=== PATIENT | male | born 1960 | race African-American/Black ===

== ENCOUNTER 2020-01-01 18:28 | Observation (INO) | payer OTHER ==
[~2020-01-01] VITALS: Ht 177.8 cm; Wt 78.9 kg
[~2020-01-01 18:28] MED LIST: KEFLEX500 MG ORAL; NAPROSYN500 M1 ORAL
[2020-01-01 18:40] VITALS: BP 130/83
--- NOTE | 2020-01-01 18:40 | NUR ---
ED Nurse Note: Pt walked in from home c/o squeezing left chest pain that radiates down his left arm to his left hand. Pt reports 8/10 pain that started a few days ago. Respirations even and unlabored on room air. Vitals stable as documented. Pt sinus deya @ 58 on the monitor. A+Ox4.
--- NOTE | 2020-01-01 19:00 | Emergency Room Report ---
History of Present Illness General Chief Complaint: Chest Pain Source: Patient Present Illness HPI Patient presents with complaints of chest pain left upper chest Off and on for the past 7 days Patient reports that he has radiation to the left shoulder and left arm denies any focal weakness He reports that when he wakes up in the morning he feels increased discomfort Denies any change with position or exertion Denies any visual changes Patient reports that he has had worsening lifestyle over the past 5 years including drinking alcohol and smoking marijuana Allergies: Coded Allergies: No Known Allergies (Unverified , 04/21/16) Patient History Past Medical History: see triage record Reviewed Nursing Documentation: PMH: Agreed; PSxH: Agreed Nursing Documentation-PMH Past Medical History: No Stated History Review of Systems All Other Systems: negative except mentioned in HPI Physical Exam Vital Signs Date Time Temp Pulse Resp B/P (MAP) Pulse Ox O2 Delivery O2 Flow Rate FiO2 01/01/20 18:30 98.8 70 20 130/83 (99) 96 Room Air Sp02 EP Interpretation: reviewed, normal General Appearance: well appearing, no apparent distress Head: normocephalic, atraumatic Eyes: bilateral eye PERRL, bilateral eye EOMI ENT: hearing grossly normal, normal pharynx, TMs + canals normal, uvula midline Neck: full range of motion, supple, no meningismus, no bony tend Respiratory: lungs clear, normal breath sounds, no rhonchi, no respiratory distress, no retraction, no accessory muscle use Cardiovascular #1: normal peripheral pulses, regular rate, rhythm, no edema, no gallop, no JVD, no murmur Gastrointestinal: normal bowel sounds, non tender, soft, no mass, no organomegaly, non-distended, no guarding, no hernia, no pulsatile mass, no rebound Genitourinary: no CVA tenderness Musculoskeletal: normal inspection Neurologic: motor strength/tone normal, newspaper managing editor III-XII nml as tested, oriented x3 , sensory intact, responsive Psychiatric: mood/affect normal Skin: no rash Lymphatic: normal inspection, no adenopathy Medical Decision Making Diagnostic Impression: Primary Impression: ACS (acute coronary syndrome) ER Course Patient is a fairly complex patient with multiple differential to consideration including but not limited to cardiac cardiopulmonary and vascular emergencies Patient's EKG does not show any obvious ST elevations Blood work initially is appropriate given the patient description of pain and the presentation will require further observation and evaluation Labs Test 01/01/20 18:40 White Blood Count 6.7 K/UL (4.8-10.8) Red Blood Count 5.73 M/UL (4.70-6.10) Hemoglobin 14.0 G/DL (14.2-18.0) Hematocrit 44.2 % (42.0-52.0) Mean Corpuscular Volume 77 FL (80-99) Mean Corpuscular Hemoglobin 24.5 PG (27.0-31.0) Mean Corpuscular Hemoglobin Concent 31.8 G/DL (32.0-36.0) Red Cell Distribution Width 12.9 % (11.6-14.8) Platelet Count 241 K/UL (150-450) Mean Platelet Volume 7.6 FL (6.5-10.1) Neutrophils (%) (Auto) 42.3 % (45.0-75.0) Lymphocytes (%) (Auto) 44.3 % (20.0-45.0) Monocytes (%) (Auto) 9.3 % (1.0-10.0) Eosinophils (%) (Auto) 2.0 % (0.0-3.0) Basophils (%) (Auto) 2.1 % (0.0-2.0) Sodium Level 145 MMOL/L (136-145) Potassium Level 4.1 MMOL/L (3.5-5.1) Chloride Level 107 MMOL/L (98-107) Carbon Dioxide Level 29 MMOL/L (21-32) Anion Gap 9 mmol/L (5-15) Blood Urea Nitrogen 8 mg/dL (7-18) Creatinine 1.2 MG/DL (0.55-1.30) Estimat Glomerular Filtration Rate > 60 mL/min (>60) Glucose Level 77 MG/DL (74-106) Calcium Level 9.2 MG/DL (8.5-10.1) Total Bilirubin 0.4 MG/DL (0.2-1.0) Aspartate Amino Transf (AST/SGOT) 18 U/L (15-37) Alanine Aminotransferase (ALT/SGPT) 19 U/L (12-78) Alkaline Phosphatase 50 U/L (46-116) Total Creatine Kinase 146 U/L (26-308) Troponin I 0.000 ng/mL (0.000-0.056) Pro-B-Type Natriuretic Peptide 56 pg/mL (0-125) Total Protein 7.2 G/DL (6.4-8.2) Albumin 3.7 G/DL (3.4-5.0) Globulin 3.5 g/dL Albumin/Globulin Ratio 1.1 (1.0-2.7) Lipase 144 U/L (73-393) EKG Diagnostic Results Rate: normal Rhythm: NSR ST Segments: other - Nonspecific ST and T wave changes Rhythm Strip Diag. Results EP Interpretation: yes Rate: 70 Rhythm: NSR, no PVC's, no ectopy Chest X-Ray Diagnostic Results Chest X-Ray Diagnostic Results : Chest X-Ray Ordered: Yes # of Views/Limited/Complete: 1 View Indication: Chest Pain EP Interpretation: Yes Interpretation: no consolidation, no effusion, no pneumothorax Impression: No acute disease Electronically Signed by: Genet Bain DO Last Vital Signs Date Time Temp Pulse Resp B/P (MAP) Pulse Ox O2 Delivery O2 Flow Rate FiO2 01/01/20 18:40 58 20 Room Air 01/01/20 18:40 98.8 130/83 96 Status: improved Disposition: PLACE IN OBSERVATION Condition: Serious Genet Bain DO Jan 01, 2020 19:00
[2020-01-01 19:04] LABS: BASOPHILS % (AUTO) 2.1 % (0.0-2.0); HEMATOCRIT 44.2 % (42.0-52.0); LYMPHOCYTES % (AUTO) 44.3 % (20.0-45.0); MEAN CORPUSCULAR VOLUME 77 FL (80-99); MONOCYTES % (AUTO) 9.3 % (1.0-10.0); NEUTROPHILS % (AUTO) 42.3 % (45.0-75.0); PLATELET COUNT 241 K/UL (150-450); RED BLOOD COUNT 5.73 M/UL (4.70-6.10); RED CELL DISTRIBUTION WIDTH 12.9 % (11.6-14.8); WHITE BLOOD COUNT 6.7 K/UL (4.8-10.8)
--- NOTE | 2020-01-01 19:10 | NUR ---
ED Nurse Note: Report given to MIGUEL A Moraes. Pt in stable condition; plan of care endorsed.
[2020-01-01 19:25] LABS: ANION GAP 9 mmol/L (5-15); BLOOD UREA NITROGEN 8 mg/dL (7-18); CALCIUM 9.2 MG/DL (8.5-10.1); CARBON DIOXIDE 29 MMOL/L (21-32); CHLORIDE 107 MMOL/L (98-107); CREATININE 1.2 MG/DL (0.55-1.30); POTASSIUM 4.1 MMOL/L (3.5-5.1); SODIUM 145 MMOL/L (136-145)
--- NOTE | 2020-01-01 19:30 | NUR ---
ED Nurse Note: Reassessed patient, patient resting in bed, no acute distress noted.
[2020-01-01 19:36] LABS: ALANINE AMINOTRANSFERASE 19 U/L (12-78); ALBUMIN 3.7 G/DL (3.4-5.0); ALBUMIN/GLOBULIN RATIO 1.1 (1.0-2.7); ALKALINE PHOSPHATASE 50 U/L (46-116); ASPARTATE AMINO TRANSFERASE 18 U/L (15-37); BILIRUBIN,TOTAL 0.4 MG/DL (0.2-1.0); CREATINE KINASE 146 U/L (26-308)
[2020-01-01 19:39] VITALS: BP 116/77
--- NOTE | 2020-01-01 20:49 | NUR ---
ED Nurse Note: ERMD at bedside.
--- NOTE | 2020-01-01 21:45 | NUR ---
TRANSFER TO FLOOR: Patient transferred to telemetry as ordered, per ERMD. Report given to MIGUEL A Lundberg. Patient transferred to unit via gurney on machine feller with ACLS protocol accompanied by 1 RN in stable condition.
--- NOTE | 2020-01-01 22:00 | NUR ---
ED Nurse Note: Report given to MIGUEL A Lundberg in tele.
[2020-01-01 22:30] VITALS: BP 123/82
--- NOTE | 2020-01-01 22:30 | NUR ---
NURSE NOTES: Pt arrived via gurney from ER. Got report from Aelisha GRADY. Initial assessment done. Pt is fully alert and steady ambulatory. Pt is here for Chest pain. Denies any pain. Denies any n/v. No s/s of distress or discomfort noted. VSS BP:123/82 HR:55 T:97.3 R:16 O2:98% on room air. No skin issues noted. Pt has R AC 18g patent. evening anchor placed on pt running Sinus Rhythm on the monitor. Pt resting in bed comfortably. Bed in low and locked position, call light within reach, bedside table within reach. Continue to monitor. Orders given by Dr. Potts. Orders placed.
[2020-01-01] MEDS ORDERED: Acetaminophen 500mg (ES) tab ORAL PRN (22:45)
[2020-01-02] VITALS: BP 105/60
[2020-01-02 04:00] VITALS: BP 108/69
--- NOTE | 2020-01-02 07:18 | NUR ---
HAND-OFF: Report given to Mary GRADY.
--- NOTE | 2020-01-02 07:30 | NUR ---
NURSE NOTES: Received pt from CN FE, Pt is awake and alert, pt is in RA, no SOB or acute respiratory distress noted. pt has intact iv access RAC 18G SL. Pt is on continues heart monitoring. Dr LAWSON visited pt and is aware about CP and bradycardia and other lab results and V/S ordered nitro SL, noted and carried out, all needs attended, bed is locked and is in the lowest position, call light within easy reach. will continue to monitor.
--- NOTE | 2020-01-02 07:41 | Cardiac Electrophysiology PN ---
Subjective Subjective [id number] Objective Last 24 Hour Vital Signs Date Time Temp Pulse Resp B/P (MAP) Pulse Ox O2 Delivery O2 Flow Rate FiO2 01/02/20 04:00 98.0 55 20 108/69 (82) 95 01/02/20 04:00 61 01/02/20 01:47 Room Air 01/02/20 00:50 Room Air 01/02/20 00:00 79 01/02/20 00:00 97.8 60 18 105/60 (75) 98 01/01/20 22:30 97.3 55 18 123/82 (96) 98 01/01/20 22:30 61 01/01/20 21:45 98.5 56 16 122/85 99 Room Air 01/01/20 19:39 54 20 116/77 100 Room Air 01/01/20 18:40 58 20 Room Air 01/01/20 18:40 98.8 58 20 130/83 96 Room Air 01/01/20 18:30 98.8 70 20 130/83 (99) 96 Room Air Intake and Output 01/01/20 01/02/20 19:00 07:00 Intake Total 500 ml Output Total 100 ml Balance 400 ml Intake IV Total 500 ml Output Urine Total 100 ml # Voids 2 Laboratory Tests Test 01/01/20 18:40 01/02/20 06:05 White Blood Count 6.7 K/UL (4.8-10.8) Red Blood Count 5.73 M/UL (4.70-6.10) Hemoglobin 14.0 G/DL (14.2-18.0) L Hematocrit 44.2 % (42.0-52.0) Mean Corpuscular Volume 77 FL (80-99) L Mean Corpuscular Hemoglobin 24.5 PG (27.0-31.0) L Mean Corpuscular Hemoglobin Concent 31.8 G/DL (32.0-36.0) L Red Cell Distribution Width 12.9 % (11.6-14.8) Platelet Count 241 K/UL (150-450) Mean Platelet Volume 7.6 FL (6.5-10.1) Neutrophils (%) (Auto) 42.3 % (45.0-75.0) L Lymphocytes (%) (Auto) 44.3 % (20.0-45.0) Monocytes (%) (Auto) 9.3 % (1.0-10.0) Eosinophils (%) (Auto) 2.0 % (0.0-3.0) Basophils (%) (Auto) 2.1 % (0.0-2.0) H Sodium Level 145 MMOL/L (136-145) Potassium Level 4.1 MMOL/L (3.5-5.1) Chloride Level 107 MMOL/L (98-107) Carbon Dioxide Level 29 MMOL/L (21-32) Anion Gap 9 mmol/L (5-15) Blood Urea Nitrogen 8 mg/dL (7-18) Creatinine 1.2 MG/DL (0.55-1.30) Estimat Glomerular Filtration Rate > 60 mL/min (>60) Glucose Level 77 MG/DL (74-106) Calcium Level 9.2 MG/DL (8.5-10.1) Total Bilirubin 0.4 MG/DL (0.2-1.0) Aspartate Amino Transf (AST/SGOT) 18 U/L (15-37) Alanine Aminotransferase (ALT/SGPT) 19 U/L (12-78) Alkaline Phosphatase 50 U/L (46-116) Total Creatine Kinase 146 U/L (26-308) Troponin I 0.000 ng/mL (0.000-0.056) 0.000 ng/mL (0.000-0.056) Pro-B-Type Natriuretic Peptide 56 pg/mL (0-125) Total Protein 7.2 G/DL (6.4-8.2) Albumin 3.7 G/DL (3.4-5.0) Globulin 3.5 g/dL Albumin/Globulin Ratio 1.1 (1.0-2.7) Lipase 144 U/L (73-393) Walt Solitario MD Jan 02, 2020 07:41
[2020-01-02] MEDS ORDERED: Lexiscan 0.4mg/5ml syringe IV PRN (07:45)
[2020-01-02 08:00] VITALS: BP 114/73
[2020-01-02] MEDS ORDERED: Nitroglycerin Subl 0.4mg tab SL PRN (08:00)
--- NOTE | 2020-01-02 11:30 | Consultation ---
DATE OF CONSULTATION: 01/02/2020 CARDIOLOGY CONSULTATION CONSULTING PHYSICIAN: Walt Solitario M.D. REFERRING PHYSICIAN: Genet Potts M.D. REASON FOR CONSULTATION: Chest pain. HISTORY OF PRESENT ILLNESS: The patient is a very pleasant 59-year-old gentleman with no past medical history, on no medication at home, came to the emergency room with off and on chest pain radiation to the left shoulder, has been going on for almost a month. The patient did not have any nausea, vomiting, or diaphoresis. The patient denies any prior myocardial infarction or coronary artery disease or congestive heart failure. The patient states, however, has been drinking alcohol and was smoking marijuana also in the last five years. The blood pressure in the ER was 130/80 with a pulse of 70 and initial troponin was negative. REVIEW OF SYSTEMS: Review of systems was negative other than what was mentioned in the history of present illness. PAST MEDICAL HISTORY: As mentioned above. FAMILY HISTORY: Noncontributory. SOCIAL HISTORY: He has history of smoking marijuana and history of alcohol. PHYSICAL EXAMINATION: VITAL SIGNS: Show blood pressure of 100/59, pulse of 55, respirations 18, and temperature 98. HEAD AND NECK: Showed no JVD. LUNGS: Clear. CARDIOVASCULAR: Shows regular S1 and S2 with no gallop or murmur. ABDOMEN: Soft and nontender. EXTREMITIES: No pitting edema. LABORATORY AND DIAGNOSTIC DATA: His EKG showed sinus bradycardia at a rate of 58, regular superior axis. His labs show white count 6.7, hemoglobin of 14, hematocrit of 44, and platelet count of 241. Sodium 144, potassium 4.1, BUN of 8, creatinine , and glucose . Troponin negative x2. ASSESSMENT AND PLAN: 1. Chest pain. The patient already ruled out for myocardial infarction by serial cardiac enzymes. His EKG is nonischemic. We will get an echocardiogram for further evaluation and if all negative, we will schedule the patient for stress test. 2. Mild bradycardia, heart rate mostly in the 50s, but no evidence of heart block. Thank you very much, Dr. Potts, for allowing me to participate in the care of this patient. Please do not hesitate to contact me for any questions regarding my evaluation. Walt Solitario M.D. DR: MONTY JOB#: [id number] CC:
--- NOTE | 2020-01-02 11:58 | Diagnostic Imaging Report ---
Indication: Dyspnea Comparison: None A single view chest radiograph was obtained. Findings: Cardiomediastinal appearance is within normal limits for age. The lungs are clear. Pulmonary vascularity is appropriate. The diaphragmatic contour is smooth and costophrenic angles are sharp. No pleural effusions are identified. The bones are unremarkable. Impression: No acute findings
[2020-01-02 12:00] VITALS: BP 110/69
--- NOTE | 2020-01-02 12:56 | NUR ---
NURSE NOTES: PT IS STABLE, v/s STABLE, pt is NPO, left unit for treadmill stress test.
[2020-01-02 16:00] VITALS: BP 106/68
--- NOTE | 2020-01-02 16:45 | NUR ---
NURSE NOTES: PT CAME BACK FROM TREADMILL STRESS TEST, PT IS STABLE, WILL CONTINUE TO MONITOR.
--- NOTE | 2020-01-02 19:24 | NUR ---
HAND-OFF: Report given to CAIMLA GRADY. Pt is awake and stable.
--- NOTE | 2020-01-02 19:25 | NUR ---
NURSE NOTES: Got report from Mary GRADY. Pt in stable condition. Denies any pain. No s/s of distress or discomfort noted. Pt resting in bed comfortably. Bed in low and locked position, call light within reach, bedside table within reach. Continue to monitor.
[2020-01-02 20:00] VITALS: BP 102/63
[2020-01-03] VITALS: BP 101/61
[2020-01-03 04:00] VITALS: BP 103/65
--- NOTE | 2020-01-03 04:00 | History and Physical Report ---
DATE OF ADMISSION: 01/01/2020 HISTORY OF PRESENT ILLNESS: The patient is admitted to rule out acute coronary syndrome. The patient has been having chest pain off and on for a couple of weeks and radiates to the left arm. Denies palpitation. Denies shortness of breath. Denies wheezing. Denies cough or chills. Denies cold-like symptoms. The patient is admitted to rule out acute coronary syndrome. PAST MEDICAL HISTORY: Degenerative joint disease. PAST SURGICAL HISTORY: None. SOCIAL HISTORY: He has a history of smoking. Denies history of drug abuse. Denies history of alcohol abuse. ALLERGIES: No known allergies. MEDICATIONS: None. FAMILY HISTORY: Noncontributory. REVIEW OF SYSTEMS: HEENT: Denies headaches. RESPIRATORY: Denies shortness of breath. Denies cough. CARDIOVASCULAR: Reports chest pain for couple of weeks, radiating into left arm. No orthopnea. GASTROINTESTINAL: Denies nausea, vomiting, or diarrhea. Denies heartburn. EXTREMITIES: Denies pain. CENTRAL NERVOUS SYSTEM: Denies changes in speech pattern. PHYSICAL EXAMINATION: VITAL SIGNS: Temperature is 98.6, pulse is 62, and blood pressure is 114/73. HEENT: PERRLA. NECK: Supple. No lymphadenopathy. CHEST: Clear to auscultation. CARDIOVASCULAR: Regular rate and rhythm. No murmurs or extra sounds. GASTROINTESTINAL: Soft, nontender, and nondistended. No organomegaly. EXTREMITIES: No edema. Moves all four extremities. Sensory intact to light touch. Reflexes equal on both sides. LABORATORY AND DIAGNOSTIC DATA: EKG is normal. WBC of 6.7, hemoglobin 14, and platelets 241,000. Sodium 145, potassium 4.1, BUN of 8, creatinine 1.2, and glucose 90. Troponin is 0. ASSESSMENT AND PLAN: Chest pain, rule out acute coronary syndrome. I have basically consulted Dr. Solitario to rule out acute coronary syndrome. This is the reason why the patient is admitted. Genet Potts M.D. DR: ADILSON JOB#: [id number] CC:
--- NOTE | 2020-01-03 07:20 | NUR ---
HAND-OFF: Report given to Elia GRADY.
--- NOTE | 2020-01-03 07:59 | NUR ---
NURSE NOTES: Pt in bed with HoB in high fowlers, pt Ox4 calm and cooperative, stress test results communicated to Delroy and Kassi, pt expresses to be discharged, waiting on NM imagine results if any to relay to PMd and Cardio, so the pt can d/c home.
[2020-01-03 08:00] VITALS: BP 122/78
--- NOTE | 2020-01-03 10:02 | Cardiac Electrophysiology PN ---
Assessment/Plan Assessment/Plan 1. Chest pain. The patient already ruled out for myocardial infarction by serial cardiac enzymes. His EKG is nonischemic. Echocardiogram EF 60%. Nuclear stress test report pending . 2. Mild bradycardia, heart rate mostly in the 50s, but no evidence of heart block. CONRAD RN Subjective Subjective Remained in SR. No events. Objective Last 24 Hour Vital Signs Date Time Temp Pulse Resp B/P (MAP) Pulse Ox O2 Delivery O2 Flow Rate FiO2 01/03/20 08:19 Room Air 01/03/20 08:00 98.6 98 19 122/78 (93) 98 01/03/20 07:48 53 01/03/20 04:00 97.4 66 18 103/65 (78) 96 01/03/20 04:00 58 01/03/20 00:00 58 01/03/20 00:00 97.5 60 16 101/61 (74) 95 01/02/20 21:00 Room Air 01/02/20 20:00 58 01/02/20 20:00 97.7 56 16 102/63 (76) 97 01/02/20 16:06 65 01/02/20 16:00 98.1 56 20 106/68 (81) 99 01/02/20 12:00 98.2 56 20 110/69 (83) 93 01/02/20 11:39 52 Intake and Output 01/02/20 01/03/20 19:00 07:00 Intake Total 740 ml Output Total 1 ml Balance 740 ml -1 ml Intake Oral 740 ml Stool Total 1 ml # Voids 3 2 Objective HEAD AND NECK: Showed no JVD. LUNGS: Clear. CARDIOVASCULAR: Shows regular S1 and S2 with no gallop or murmur. ABDOMEN: Soft and nontender. EXTREMITIES: No pitting edema. Walt Solitario MD Jan 03, 2020 10:02
--- NOTE | 2020-01-03 10:18 | Diagnostic Imaging Report ---
Indications: Chest pain Technique: Single day single isotope protocol utilized. Initially, resting images obtained using IV administration 10.3 millicuries 99M technetium Myoview. Subsequently, patient underwent treadmill stress testing. See cardiology report for details. During exercise, IV administration 10.3 mCi 99 M technetium Myoview. SPECT and planar images obtained. SPECT images gated to 8 phases of the cardiac cycle were also obtained, and reformatted into cine images for evaluation of ejection fraction. Comparison: none Findings: Per cardiology report, patient experienced no chest pain. Per cardiology report, resting EKG demonstrates normal sinus rhythm with left anterior fascicular block, no ST wave changes during exercise. Imaging demonstrates normal poststress perfusion. No fixed nor reversible perfusion defects are demonstrated. Normal left ventricular chamber size. Calculated post stress ejection fraction 60% Impression: Nonischemic clinical response to pharmacologic stress, per cardiology report Nonischemic electrocardiographic response to pharmacologic stress, per cardiology report No imaging findings to suggest ischemia, at level of stress achieved. Calculated post stress ejection fraction 64%
--- NOTE | 2020-01-03 10:33 | General Progress Note ---
Assessment/Plan Problem List: (1) Joint pain ICD Codes: M25.50 - Pain in unspecified joint SNOMED: 21274012 (2) Insect bite ICD Codes: W57.XXXA - Bitten or stung by nonvenomous insect and other nonvenomous arthropods, initial encounter SNOMED: 961126811 (3) Chest pain ICD Codes: R07.9 - Chest pain, unspecified SNOMED: 63757358 (4) ACS (acute coronary syndrome) ICD Codes: I24.9 - Acute ischemic heart disease, unspecified SNOMED: 809009594 Status: progressing Assessment/Plan: chest pain r/o acs afebrile dc if cleared by caridology trop is negative atypical Subjective ROS Limited/Unobtainable: Yes Allergies: Coded Allergies: No Known Allergies (Unverified , 04/21/16) Objective Last 24 Hour Vital Signs Date Time Temp Pulse Resp B/P (MAP) Pulse Ox O2 Delivery O2 Flow Rate FiO2 01/03/20 08:19 Room Air 01/03/20 08:00 98.6 98 19 122/78 (93) 98 01/03/20 07:48 53 01/03/20 04:00 97.4 66 18 103/65 (78) 96 01/03/20 04:00 58 01/03/20 00:00 58 01/03/20 00:00 97.5 60 16 101/61 (74) 95 01/02/20 21:00 Room Air 01/02/20 20:00 58 01/02/20 20:00 97.7 56 16 102/63 (76) 97 01/02/20 16:06 65 01/02/20 16:00 98.1 56 20 106/68 (81) 99 01/02/20 12:00 98.2 56 20 110/69 (83) 93 01/02/20 11:39 52 Intake and Output 01/02/20 01/03/20 19:00 07:00 Intake Total 740 ml Output Total 1 ml Balance 740 ml -1 ml Intake Oral 740 ml Stool Total 1 ml # Voids 3 2 Height (Feet): 5 Height (Inches): 10.00 Weight (Pounds): 174 Neck: supple Cardiovascular: normal rate Respiratory/Chest: lungs clear Abdomen: soft Genet Potts MD Jan 03, 2020 10:33
--- NOTE | 2020-01-03 12:22 | NUR ---
NURSE NOTES: pt received clearance from PMSusu and md Solitario, discharge order were in and pt received after care plan and med recon with no meds to follow up on. Pt was dressed and IV, ID band and library monitor removed, pt receive a letter from social insurance analyst stating admission and discharge date. pt was walked down to lobby and left with friend
--- NOTE | 2020-01-03 16:21 | NUR ---
CASE MANAGEMENT: INITIAL REVIEW 59YR OLD MALE FROM HOME CC: CHEST PAIN SI:ACS 98.8 70 20 130/83 96% ON RA TROP (-) IS: IVF NS BOLUS X1 ASA PO X1 CHEST X-RAY \: 2E TELE UNIT CASE MANAGEMENT: REVIEW 01/02/20 SI:ACS 98.2 56 20 110/69 93% ON RA IS:NM STRESS TEST \: 2E TELE UNIT
--- NOTE | 2020-01-27 16:33 | Discharge Summary ---
Discharge Summary Discharge Summary _ DATE OF ADMISSION: 01/01/2020 DATE OF DISCHARGE: 01/03/2020 DISCHARGED BY: Dr. Genet Carey CONSULTANTS: Dr. Walt Solitario BRIEF HOSPITAL COURSE: Patient is a 59-year-old male, who presented to ED with complaints of left upper chest pain. Symptoms have been on and off for the past 7 days. He reported radiation to the left shoulder and left arm. He denied any focal weakness. He had increased chest discomfort and reported worsening lifestyle over the past 5 years including drinking alcohol and smoking marijuana. Upon evaluation at ED, vital signs were stable. Blood work did not show any leukocytosis. Hemoglobin and hematocrit were stable. Electrolytes were normal. Troponin negative. EKG showed normal sinus rhythm with nonspecific ST and T wave changes. Chest x-ray did not show any acute disease. He was admitted for evaluation of chest pain. He was admitted under observation. He underwent cardiac evaluation. Cardiac enzymes were negative x2. EKG was nonischemic. He had mild bradycardia but no evidence of a heart block. Echocardiogram showed ejection fraction 60%. He was given antiplatelet therapy. He underwent a nuclear stress test. Results were nonischemic. No imaging findings to suggest ischemia at the level of stress achieved. He was then cleared for discharge home. FINAL DIAGNOSES: Chest pain ruled out for MS Mild bradycardia with no evidence of heart block Joint pain Insect bite DISPOSITION: Patient was discharged home. DISCHARGE INSTRUCTIONS: Follow-up in a week. I have been assigned to complete a discharge summary on this account, I was not involved with the patient's management.--BRADLEY Littlejohn Jacqueline Robles NP Jan 27, 2020 16:33
== END 2020-01-03 12:27 | disposition home or self-care (01) ==
LOC: EMR 20:09 → 2E 20:25 → EDBEDREQ 21:00
DX: I24.9 Acute ischemic heart disease, unspecified (principal); M25.50 Pain in unspecified joint; R07.9 Chest pain, unspecified; R00.1 Bradycardia, unspecified
CPT/HCPCS: 36415; 71045; 78452; 80053; 80307; 82550; 83690; 83880; 84484; 85025; 93005; 93017; 93306; A4641; J7040; Z7502; 99284; G0378